=== PATIENT | female | born 1950 | race Caucasian/White ===

== ENCOUNTER → 2018-04-16 | Outpatient (CLI) | payer MEDICARE, OTHER ==
[~2018-04-16] MED LIST: ACTOS; ATENOLOL; DIGOXIN; ESTRACE; GLIPIZIDE; LEVOTHROID; METFORMIN
== END ==
LOC: M.RAD 13:43
DX: Z12.31 Encounter for screening mammogram for malignant neoplasm of breast (principal)

== ENCOUNTER → 2020-03-22 | Outpatient (CLI) | payer MEDICARE, OTHER ==
--- NOTE | 2020-03-22 14:38 | 2DMMODE ---
[place] [address] 2 D/M-MODE ECHOCARDIOGRAM Name: AMARIKailashJA L Room: [facility]#: [id number] Admission: 03/22/20 Attend Phys: GINGER Quintanilla Discharge: Date of : 52 Date of Service: 03/22/20 1437 Report #: [id number] THIS REPORT FOR: cc: Connie Costello Tammy RNP Liston, Michael J. MD [facility] ~ APPROVED REPORT Study performed: 03/22/2020 13:34:18 EXAM: Comprehensive 2D, Doppler, and color-flow Echocardiogram Patient Location: Out-Patient BSA: 1.75 HR: 84 bpm BP: 118/80 mmHg Other Information Study Quality: Good Indications Aortic Valve Disease Mitral Valve Disease 2D Dimensions IVSd: 10.24 (7-11mm) LVOT Diam: 20.60 (18-24mm) LVDd: 37.80 mm PWd: 11.25 (7-11mm) Ascending Ao: 34.62 (22-36mm) LVDs: 20.26 (25-40mm) Aortic Root: 28.61 mm Volumes Left Atrial Volume (Systole) LA ESV Index: 10.30 mL/m2 Aortic Valve AoV Peak Devon.: 1.42 m/s AO Peak Gr.: 8.04 mmHg LVOT Max P.84 mmHg AO Mean Gr.: 4.52 mmHg LVOT Mean P.38 mmHg LVOT Max V: 1.31 m/s AO V2 VTI: 22.88 cm LVOT Mean V: 0.85 m/s NIKKY (VTI): 3.21 cm2 LVOT V1 VTI: 22.02 cm AI [place]: 2.21 m/s2 AI PHT: 414.69 [place] [address] 2 D/M-MODE ECHOCARDIOGRAM Name: JA GARZA Room: [facility]#: [id number] Admission: 03/22/20 Attend Phys: GINGER Quintanilla Discharge: Date of : 52 Date of Service: 03/22/20 1437 Report #: [id number] Mitral Valve E/A Ratio: 0.44 MV Decel. Time: 319.08 ms MV E Max Devon.: 0.52 m/s MV PHT: 92.53 ms MVA (PHT): 2.38 cm2 TDI E/Lateral E': 6.50 E/Medial E': 7.43 Medial E' Devon.: 0.07 m/s Lateral E' Devon.: 0.08 m/s Pulmonary Valve PV Peak Devon.: 1.06 m/s PV Peak Gr.: 4.47 mmHg Tricuspid Valve RAP Estimate: 5.00 mmHg TR Peak Gr.: 19.03 mmHg RVSP: 24.03 mmHg PA Pressure: 24.03 mmHg Left Ventricle The left ventricle is normal size. Left ventricular systolic dyssynergy noted consistent with underlying bundle branch block. There is normal left ventricular wall thickness. Left ventricular systolic function is normal. LVEF is 55-60%. Grade I - abnormal relaxation pattern. Right Ventricle The right ventricle is normal size. The right ventricular systolic function is normal. Atria The left atrium size is normal. The right atrium size is normal. Aortic Valve The aortic valve is normal in structure. Mild aortic regurgitation. There is no aortic valvular stenosis. Mitral Valve The mitral valve is normal in structure. There is no mitral valve regurgitation noted. No evidence of mitral valve stenosis. Tricuspid Valve The tricuspid valve is normal in structure[place] [address] 2 D/M-MODE ECHOCARDIOGRAM Name: REGI GARZABRAVO Linder Room: [facility]#: [id number] Admission: 03/22/20 Attend Phys: GINGER Quintanilla Discharge: Date of : 52 Date of Service: 03/22/20 1437 Report #: [id number] regurgitation. No pulmonary hypertension. Pulmonic Valve The pulmonary valve is normal in structure. There is no pulmonic valvular regurgitation. Great Vessels The aortic root is normal in size. IVC is normal in size and collapses >50% with inspiration. Pericardium There is no pericardial effusion. <Conclusion> The left ventricle is normal size. There is normal left ventricular wall thickness. Left ventricular systolic function is normal. LVEF is 55-60%. Grade I - abnormal relaxation pattern. Left ventricular systolic dyssynergy noted consistent with underlying bundle branch block. Mild aortic regurgitation. Mild tricuspid regurgitation. No pulmonary hypertension. IVC is normal in size and collapses >50% with inspiration. <ELECTRONICALLY SIGNED> By: Fran Morgan MD, FACC 03/22/20 1437 1437 1437 Fran Morgan MD, FACC /INF
== END ==
LOC: M.CRD 13:15
PROVIDERS: ATTEND Registered Nurse Diabetes Educator
DX: I08.2 Rheumatic disorders of both aortic and tricuspid valves (principal)